=== PATIENT | male | born 1990 | race Caucasian/White ===

== ENCOUNTER 2016-05-10 09:25 | Inpatient (IN) | payer MEDICAID ==
[~2016-05-10] VITALS: Ht 177.8 cm; Wt 74.8 kg
[2016-05-10 09:25] VITALS: BP 145/72; PULSE 108; RESP 19; TEMP 99.1; O2SAT 98
--- NOTE | 2016-05-10 09:30 | NUR ---
Patient to ER bed 5 to gown for evaluation. Side railUP. ASSUMED CARE.
--- NOTE | 2016-05-10 09:35 | NUR ---
ER at bedside examining patient.
--- NOTE | 2016-05-10 09:36 | NUR ---
PT PRESENTS TO ED C/O LOWER ABD PAIN SINCE APPROX 0200 YESTERDAY. PT DENIES PREV MED HX. TENDERNESS NOTED IN LOWER ABD.
--- NOTE | 2016-05-10 09:40 | NUR ---
Pt offered medication by and myself. Pt refused. Pt educated on pain management.Pt verbalized understanding and advised to inform ed staff if pain medication required.
[2016-05-10 09:51] LABS: HEMATOCRIT 46.9 % (36-54); HEMOGLOBIN 15.7 g/dL (14.0-18.0); MEAN CORPUSCULAR HEMOGLOBIN 30 pg (27-31); MEAN CORPUSCULAR HGB CONC 34 % (32-36); MEAN CORPUSCULAR VOLUME 88 fL (79.0-98.0); PLATELET COUNT (AUTO) 193 K/uL (130-430); RED BLOOD CELL COUNT(AUTO) 5.32 MIL/uL (4.2-6.2); RED CELL DISTRIBUTION WIDTH 12.3 % (9.0-15.0)
[2016-05-10 09:53] LABS: WHITE BLOOD COUNT (AUTO) 23.4 K/uL (4.8-10.8)
[2016-05-10 09:59] LABS: CALCIUM 9.6 mg/dL (8.4-11.0); CREATININE 1.41 mg/dL (0.55-1.30); POTASSIUM 4.4 mmol/L (3.5-5.1)
[2016-05-10 10:03] LABS: INR 1.1 (0.80-1.20); PROTHROMBIN TIME 11.9 SECS (9.5-12.5)
[2016-05-10 10:05] LABS: ALBUMIN 4.4 g/dL (3.4-4.8); TOTAL BILIRUBIN 2.1 mg/dL (0.0-1.0); TOTAL PROTEIN, SERUM 8.2 g/dL (6.4-8.3)
--- NOTE | 2016-05-10 10:07 | NUR ---
Patient transported to radiology via WHEELCHAIR, accompanied by RAD STAFF.
[2016-05-10 10:14] LABS: ATYPICAL LYMPHOCYTES % 0 % (0-0); BAND % (MANUAL) 20 % (0-6); BASOPHILS % (MANUAL) 0 % (0-2); EOSINOPHILS % (MANUAL) 0 % (0-7); LYMPHOCYTES % (MANUAL) 4 % (20-46); MONOCYTES % (MANUAL) 3 % (0-11)
--- NOTE | 2016-05-10 10:22 | NUR ---
Urine sample to lab
--- NOTE | 2016-05-10 10:30 | NUR ---
Pt continues to decline offer for pain medication.
[2016-05-10 10:35] LABS: BILIRUBIN,URINE 1+ (NEGATIVE); CLARITY/URINE SL HAZY (CLEAR); COLOR,URINE ORANGE (YELLOW); GLUCOSE,URINE NEGATIVE (NEGATIVE); KETONES,URINE NEGATIVE (NEGATIVE); LEUKOCYTE ESTERASE ,URINE NEGATIVE (NEGATIVE); NITRITE, URINE NEGATIVE (NEGATIVE); PROTEIN URINE 1+ (NEGATIVE)
[2016-05-10 10:40] LABS: BLOOD, URINE TRACE (NEGATIVE)
[2016-05-10 10:45] LABS: BACTERIA,URINE RARE /HPF (None Seen); MUCUS,URINE 3+ /LPF (None Seen); RBC,URINE 0-3 /HPF (0-3); WBC,URINE 0-3 /HPF (0-3)
[2016-05-10] MEDS ORDERED: PIPERACILLIN/TAZO 3.375 GM in NS 50 ML IV ONE (11:30)
[2016-05-10] MEDS ORDERED: NACL 0.9% 1,000 ML IV ONE (11:30)
[2016-05-10] MEDS ORDERED: metroNIDAZOLE 500 mg/NS 100 ML IV ONE (11:30)
--- NOTE | 2016-05-10 11:30 | NUR ---
Pt tolerating medication.
[2016-05-10] MEDS ORDERED: PIPERACILLIN/TAZOBACTAM 3.375 GM/VIAL (ZOSYN) IV ONE (11:57)
[2016-05-10] MEDS ORDERED: KCL 20 mEq in D5/0.45NS 1000mL 1,000 ML IV SCH (12:15)
--- NOTE | 2016-05-10 12:15 | NUR ---
at bedside for explanation of anesthesia. pt verbalized understanding.
--- NOTE | 2016-05-10 12:15 | NUR ---
* ENTRY ERROR,PT SEEN BY
--- NOTE | 2016-05-10 13:00 | NUR ---
AT BEDSIDE FOR SURGERY CONSENT.
--- NOTE | 2016-05-10 13:15 | NUR ---
Patient will be admitted to care of . Admitted to MED/SURG unit. Will go to room AFTER SURGERY. Summary report printed. Report given to SURGERY STAFF.
[2016-05-10] MEDS: D5LR 1,000 ML IV SCH (13:35)
[2016-05-10] MEDS ORDERED: ACETAMINOPHEN/CODEINE 300 MG-30 MG TABLET PO PRN (13:45)
[2016-05-10] MEDS ORDERED: LR 1,000 ML IV SCH (13:54)
[2016-05-10] MEDS ORDERED: PROPOFOL 200MG/ 20ML VIAL (DIPRIVAN) IV ONE (14:00)
[2016-05-10] MEDS ORDERED: HYDROmorphone 1 MG INJ. 1 MG/ML AMPUL IVP PRN (14:00)
[2016-05-10] MEDS ORDERED: MEPERIDINE HCL/PF 25 MG/ML DISP.SYRIN IVP PRN ×2 (14:00)
[2016-05-10] MEDS ORDERED: KETOROLAC TROMETHAMINE 30 MG VIAL ONE (14:00)
[2016-05-10] MEDS ORDERED: fentaNYL CITRATE/PF 100 MCG/2 ML AMP ONE (14:00)
[2016-05-10] MEDS ORDERED: LR 1,000 ML IV.SOLN IV ONE (14:00)
[2016-05-10] MEDS ORDERED: KETOROLAC TROMETHAMINE 30 MG VIAL IVP PRN (14:00)
[2016-05-10] MEDS ORDERED: SEVOFLURANE 15 MIN GAS INH ONE (14:00)
[2016-05-10] MEDS ORDERED: BUPIVACAINE /EPINEPHRINE/PF 0.25% 30 ML VIAL INJ ONE (14:00)
[2016-05-10] MEDS ORDERED: HYDROmorphone 2 MG/ML VIAL IVP PRN ×2 (14:00)
[2016-05-10] MEDS ORDERED: ONDANSETRON HCL 4 MG/2 ML VIAL ONE (14:00)
[2016-05-10] MEDS ORDERED: ONDANSETRON HCL 4 MG/2 ML VIAL IVP PRN (14:00)
[2016-05-10] MEDS ORDERED: SUCCINYLCHOLINE CHLORIDE 20 MG/ML(QUELICIN) ONE (14:00)
[2016-05-10] MEDS ORDERED: MIDAZOLAM HCL 5 MG/5 ML VIAL ONE (14:00)
[2016-05-10] MEDS ORDERED: PIPERACILLIN/TAZO 3.375/DEX-IS 50 ML IV SCH (14:30)
[2016-05-10 15:30] VITALS: BP 124/72; PULSE 92; RESP 17; TEMP 98.9; O2SAT 94
--- NOTE | 2016-05-10 15:30 | NUR ---
Initial note Patient transferred from OR. A/O x 4, tired looking, no SOB, no chest pain, denied pain. Skin warm to touch, S/p ABD surgery, 3 dressing covered on ABD. Diminished lung sounds, and hypoactive bowel sounds all quadrants. +2 radial and pedal pulses, no edema noted. Call light within reach, educated patient to use call light for any concern or question, will continue monitor patient.
--- NOTE | 2016-05-10 15:30 | NUR ---
INCENTIVE SPIROMETER Educated pt on use of incentive spirometer, pt to use 10 times an hour while awake, pt verbalized understanding, pt at 1500ml.
--- NOTE | 2016-05-10 16:00 | NUR ---
Round A/O x 4, tired looking, no SOB, no chest pain, denied pain, denied N/V. Skin warm to touch, S/p ABD surgery, 3 dressing covered on ABD. Diminished lung sounds, and hypoactive bowel sounds all quadrants. +2 radial and pedal pulses, no edema noted. Call light within reach, educated provided, will continue monitor patient.
[2016-05-10] MEDS: MORPHINE 4 MG/ML INJ. SYRINGE IVP PRN (17:20)
[2016-05-10] MEDS: ONDANSETRON HCL 4 MG/2 ML VIAL IM PRN (17:25)
--- NOTE | 2016-05-10 18:30 | NUR ---
Closing note A/O x 4, tired looking, no SOB, no chest pain, was c/o pain 8/10 and N/V, Morphine IVP and Zofran IM given, pain decreased /10, denied N/V. Skin warm to touch, S/p ABD surgery, 3 dressing covered on ABD. Diminished lung sounds, and hypoactive bowel sounds all quadrants. +2 radial and pedal pulses, no edema noted. Call light within reach, educated provided, will continue monitor patient. Addendum: 05/10/16 at 1919 by Farhan Loya RN Ice packs applied to underarms to help lower the temp. Patient tolerated well.
--- NOTE | 2016-05-10 20:03 | NUR ---
Opening Note Report received from day shift RN. Patient is in stable condition. No signs of distress noted. IV is on the RAC running D5LR@100ml/hr. Call light is within reach. Instructed to use it whenever in need of assistance to avoid falls. Patient verbalized understanding.
[2016-05-10 20:07] VITALS: BP 119/71; PULSE 96; RESP 16; TEMP 98.4
[2016-05-10 20:14] VITALS: BP 119/71; PULSE 96; RESP 16; TEMP 98.4; O2SAT 94
[2016-05-10] MEDS: LACTOBACILLUS RHAMNOSUS GG 1 CAP CAPSULE PO SCH (21:32)
--- NOTE | 2016-05-10 22:05 | NUR ---
Rounds Patient is in stable condition. No complaints at the present moment. Call light is within reach.
[2016-05-11 00:22] VITALS: BP 112/59; PULSE 98; RESP 15; TEMP 98.1; O2SAT 97
--- NOTE | 2016-05-11 00:36 | NUR ---
Rounds Patient is resting in bed. No signs of distress noted. Call light is within reach.
--- NOTE | 2016-05-11 02:36 | NUR ---
Rounds Patient is resting in bed. No signs of distress noted. Call light is within reach.
[2016-05-11 04:24] VITALS: BP 95/53; PULSE 90; RESP 15; TEMP 98.3; O2SAT 100
--- NOTE | 2016-05-11 04:38 | NUR ---
Rounds Patient is resting in bed. Call light is within reach.
[2016-05-11] MEDS: D5LR 1,000 ML IV SCH ×2 (05:28→16:27)
[2016-05-11] MEDS: PIPERACILLIN/TAZO 3.375/DEX-IS 50 ML IV SCH ×5 (05:28→23:50)
--- NOTE | 2016-05-11 06:30 | NUR ---
Closing Note Patient is currently sleeping in bed. No complaints at the moment. IV is on the RAC running D5LR@100ml/hr. Call light is within reach. Will give report to the oncoming nurse.
[2016-05-11 06:38] LABS: CALCIUM 8.7 mg/dL (8.4-11.0); CREATININE 1.21 mg/dL (0.55-1.30); POTASSIUM 3.7 mmol/L (3.5-5.1)
[2016-05-11 06:50] LABS: HEMATOCRIT 36.6 % (36-54); HEMOGLOBIN 12.9 g/dL (14.0-18.0); MEAN CORPUSCULAR HEMOGLOBIN 32 pg (27-31); MEAN CORPUSCULAR HGB CONC 35 % (32-36); MEAN CORPUSCULAR VOLUME 90 fL (79.0-98.0); PLATELET COUNT (AUTO) 149 K/uL (130-430); RED BLOOD CELL COUNT(AUTO) 4.08 MIL/uL (4.2-6.2); RED CELL DISTRIBUTION WIDTH 12.2 % (9.0-15.0)
[2016-05-11 07:04] LABS: WHITE BLOOD COUNT (AUTO) 14.2 K/uL (4.8-10.8)
--- NOTE | 2016-05-11 07:20 | NUR ---
Initial notes: pt on be awake, alert and oriented. Stable. Denies pain. I.V. access patent. Discussed plan of care. Call light within reach. Report received at bedside.
[2016-05-11 08:07] VITALS: BP 110/68; PULSE 91; RESP 14; TEMP 98.6; O2SAT 100
[2016-05-11] MEDS: LACTOBACILLUS RHAMNOSUS GG 1 CAP CAPSULE PO SCH ×2 (08:07→20:45)
[2016-05-11 09:44] LABS: ATYPICAL LYMPHOCYTES % 0 % (0-0); BAND % (MANUAL) 27 % (0-6); BASOPHILS % (MANUAL) 0 % (0-2); EOSINOPHILS % (MANUAL) 0 % (0-7); LYMPHOCYTES % (MANUAL) 7 % (20-46); MONOCYTES % (MANUAL) 5 % (0-11)
[2016-05-11] MEDS: MORPHINE 4 MG/ML INJ. SYRINGE IVP PRN ×2 (09:47→16:31)
--- NOTE | 2016-05-11 10:00 | NUR ---
Liliam rounds: Seen by Dr. Pablo.
--- NOTE | 2016-05-11 12:00 | NUR ---
rounds: pt on bed. no distress noted.
--- NOTE | 2016-05-11 15:00 | NUR ---
rounds: pt sleeping. no distress noted.
--- NOTE | 2016-05-11 17:00 | NUR ---
rounds: pt feels Nauseated. Zofran given.
[2016-05-11] MEDS: ONDANSETRON HCL 4 MG/2 ML VIAL IM PRN (17:32)
--- NOTE | 2016-05-11 19:30 | NUR ---
closing notes: pt on bed resting. stable. needs attended. call light within reach. report given at bedside.
[2016-05-11 20:00] VITALS: BP 106/63; PULSE 64; RESP 20; TEMP 98.2; O2SAT 98
--- NOTE | 2016-05-11 20:00 | NUR ---
INITIAL NOTES; -Pt is a/ox4, resting in bed. Pt denies any pain,sob,or any acute distress. Vitals signs 98.2, 20, 64,106/63, y4vxl=88% r/a. IVF LR @ 100ml/hr. Iv site of RAC patent, no s/s any infiltration noted. 3 surgical puncture sites of abdominal area-drsg cdi with old blood stained. Pt refused to change new surgical abdominal drsg. Pt stated, " I am okay with it,no needs to change.'' Instructed pt if change mind and want to change new drsg-use call light to inform nurse, pt verbalized understanding. Keep HOB greater than 30 degree entire time. Lung sounds clear throughout all lobes. Abdomen soft & nondistended, bs present. Bill pedis pulses present, no edema noted. SCD in place osvaldo lower extremities. Encouraged pt to use incentive spirometry 10x/hr while awake, pt shows good teaching back and verbalized understanding. All safety measures in place. Call light w/in reach. Continue to monitor pt.
--- NOTE | 2016-05-11 20:45 | NUR ---
NOTES; -Pt is resting in bed. Pt denies any pain,sob,or any acute distress. Gave po medication, pt tolerated well. IVF LR @ 100ml/hr. Iv site of RAC patent, no s/s any infiltration noted. SCD in place osvaldo lower extremities. All safety measures in place. Call light w/in reach. Continue to monitor pt.
--- NOTE | 2016-05-11 22:17 | NUR ---
NOTES; -Pt is resting in bed. No s/s any pain,sob,or any acute distress noted. IVF LR @ 100ml/hr. Iv site of RAC patent, no s/s any infiltration noted. SCD in place osvaldo lower extremities. All safety measures in place. Call light w/in reach. Continue to monitor pt.
--- NOTE | 2016-05-11 23:50 | NUR ---
NOTES; -Pt is resting in bed. Pt denies any pain,sob,or any acute distress. IVF LR @ 100ml/hr. Iv site of RAC patent, no s/s any infiltration noted. All safety measures in place. Call light w/in reach. Continue to monitor pt.
[2016-05-12] VITALS (8 sets, daily range): BP systolic 114–135; BP diastolic 6–78; PULSE 71–87; RESP 16–21; TEMP 96.5–99.2; O2SAT 97–99
--- NOTE | 2016-05-12 01:58 | NUR ---
NOTES; -Pt is resting in bed. No s/s any pain,sob,or any acute distress noted. IVF LR @ 100ml/hr. Iv site of RAC patent, no s/s any infiltration noted. All safety measures in place. Call light w/in reach. Continue to monitor pt.
[2016-05-12] MEDS: PIPERACILLIN/TAZO 3.375/DEX-IS 50 ML IV SCH (05:35)
[2016-05-12] MEDS: D5LR 1,000 ML IV SCH ×2 (05:35→17:53)
--- NOTE | 2016-05-12 06:54 | NUR ---
CLOSING NOTES; -Pt is resting in bed. No s/s any pain,sob,or any acute distress noted. IVF LR @ 100ml/hr. Iv site of RAC patent, no s/s any infiltration noted. SCD in place osvaldo lower extremities. All safety measures in place. Call light w/in reach. Will endorse to oncoming nurse to continue care.
--- NOTE | 2016-05-12 07:20 | NUR ---
Initial notes: pt on bed awake, alert and oriented. stable. i.v. access patent. Discussed plan of care. call light within reach. report received at bedside.
[2016-05-12 07:55] LABS: BASOPHILS % (AUTO) 0.1 % (0.0-2.0); EOSINOPHILS % (AUTO) 0.1 % (0.0-4.0); HEMATOCRIT 42.5 % (36-54); HEMOGLOBIN 14.1 g/dL (14.0-18.0); LYMPHOCYTES # (AUTO) 1.3 K/uL (1.0-5.5); LYMPHOCYTES % (AUTO) 8.9 % (20.5-51.5); MEAN CORPUSCULAR HEMOGLOBIN 30 pg (27-31); MEAN CORPUSCULAR HGB CONC 33 % (32-36); MEAN CORPUSCULAR VOLUME 91 fL (79.0-98.0); MONOCYTES # (AUTO) 0.7 K/uL (0.0-1.0); NEUTROPHILS # (AUTO) 12.3 K/uL (1.8-7.7); NEUTROPHILS % (AUTO) 85.9 % (40.0-70.0); PLATELET COUNT (AUTO) 205 K/uL (130-430); RED BLOOD CELL COUNT(AUTO) 4.68 MIL/uL (4.2-6.2); RED CELL DISTRIBUTION WIDTH 12.4 % (9.0-15.0); WHITE BLOOD COUNT (AUTO) 14.3 K/uL (4.8-10.8)
--- NOTE | 2016-05-12 08:14 | NUR ---
rounds: pt ambulatory with steady gait. able to go to the toilet.
[2016-05-12 08:22] LABS: CALCIUM 9.2 mg/dL (8.4-11.0); CREATININE 1.21 mg/dL (0.55-1.30); POTASSIUM 3.7 mmol/L (3.5-5.1)
[2016-05-12] MEDS: LACTOBACILLUS RHAMNOSUS GG 1 CAP CAPSULE PO SCH ×2 (08:45→22:06)
--- NOTE | 2016-05-12 09:30 | NUR ---
Liliam rounds: seen by Dr. Yang with a discharge order.
[2016-05-12] MEDS ORDERED: HYDR-1189 PO (11:02)
--- NOTE | 2016-05-12 11:50 | NUR ---
critical lab: lab called for + ESBL/MDRO. paged Dr. Romero and called back to hold discharge. Consult for Dr. Champagne.
--- NOTE | 2016-05-12 13:34 | NUR ---
CONSULT ID ESBL/MDRO DR COATS [id number] S/W NATALIE EXCHANGE @ [id number]
--- NOTE | 2016-05-12 14:00 | NUR ---
rounds: pt waiting for M.D.
--- NOTE | 2016-05-12 16:54 | NUR ---
Liliam rounds: seen by Dr. Champagne. with new orders.
[2016-05-12] MEDS: ERTAPENEM SODIUM 1 GM in NS 50 ML IV SCH (17:53)
[2016-05-12] MEDS: ONDANSETRON HCL 4 MG/2 ML VIAL IM PRN ×2 (19:11→23:42)
[2016-05-12] MEDS: MORPHINE 4 MG/ML INJ. SYRINGE IVP PRN ×2 (19:12→23:38)
--- NOTE | 2016-05-12 19:15 | NUR ---
change of shift.pt.is placed in isolation:contact:esbl,mdro,e.coli:abdomen;wound;incision;surgery.lap appendectomy. pt.apprised of the isolation order:pt.was 2 have been d/c home:05/12/16.d/c held 2/t microbiology results:rised. pt.is independent.ambulatory.iv fluids infusing.diet:full liquids.room air.aaa/q x4.
--- NOTE | 2016-05-12 19:30 | NUR ---
closing notes: pt on bed resting. stable. needs attended. call light within reach. report given at bedside.
--- NOTE | 2016-05-12 21:00 | NUR ---
2100p medication administered:culturelle.no pain,nausea,slight bloating.diet:full liquids.pt.tolerating feeding. call light w/in pt's reach.
--- NOTE | 2016-05-12 23:15 | NUR ---
pt.requested medication:re:pain,anusea.i have administered morphine;2mg ivp,zofran:4mg ivp nausea. no other request.call light w/in pt's reach.
[2016-05-13 00:33] VITALS: BP 115/70; PULSE 68; RESP 18; TEMP 97.7; O2SAT 96
[2016-05-13] MEDS: D5LR 1,000 ML IV SCH ×4 (01:45→20:57)
--- NOTE | 2016-05-13 05:00 | NUR ---
pt.assessed,iv fluids bag changed.2 f/u with :bloating 2/t diet.pt.may require simethicone.no c/o pain,nausea @this hour.pt.states he is comfortable.
[2016-05-13 06:00] VITALS: BP 125/77; PULSE 69; RESP 17; TEMP 97.6; O2SAT 98
[2016-05-13 08:00] VITALS: BP 116/63; PULSE 85; RESP 18; TEMP 98.2; O2SAT 97
--- NOTE | 2016-05-13 08:00 | NUR ---
NOTE PT SITTING UP IN BED WITH GAS PAIN. MAKING AN ATTEMPT TO EAT SOME OF HIS FULL LIQUIDS BREAKFAST TRAY. PT ENCOURAGED TO AMBULATE IN ROOM AND HALLWAY TO HELP MOVE GAS. PT VERBALIZED UNDERSTANDING. NO SOB/RESP DISTRESS NOTED AT THIS TIME. NO NEEDS NOTED. IV IN LEFT AC INTACT AND PATENT AT THIS TIME. CALL LIGHT WITHIN REACH.
[2016-05-13] MEDS: LACTOBACILLUS RHAMNOSUS GG 1 CAP CAPSULE PO SCH ×2 (08:56→20:57)
--- NOTE | 2016-05-13 08:57 | NUR ---
PAGED ATTENDING MD DR LAZARO, RE: MEDS TO UNLOAD THE GAS.
--- NOTE | 2016-05-13 09:00 | NUR ---
NOTE DR LAZARO CALLED BACK AND STATED HE WOULD PUT IN MEDICATION SIMETHICONE PO FOR PT'S GAS PAIN.
--- NOTE | 2016-05-13 09:01 | NUR ---
Nutrition Update Marvin Scale 18 noted. Pt admitted for acute appendicitis. Diet: full liquid BMI: 23.7 kg/m2 RD to follow per nutrition care standards.
[2016-05-13] MEDS: MORPHINE 4 MG/ML INJ. SYRINGE IVP PRN (10:25)
--- NOTE | 2016-05-13 11:00 | NUR ---
NOTE PT AMBULATING IN ROOM AND ABLE TO PASS SOME GAS AND BURP. PT STATES HE FEELS A LITTLE BETTER. REQUESTED PAIN IVP MEDICATION. WILL BE GIVEN SHORTLY. PT DENIES ANY NEEDS. 3 LAP SITES ON ABDOMEN DRESSING CDI AT THIS TIME. CALL LIGHT WITHIN REACH.
--- NOTE | 2016-05-13 13:25 | NUR ---
NOTE PT STILL SLEEPY AND DROWSY. WILL WORK ON HIS LUNCH TRAY SLOWLY, PT STILL FEELS BLOATED AND FILLED WITH GAS. PT'S MOTHER CAME TO VISIT AN HOUR AGO, BUT PT WAS DEEPLY ASLEEP AND MOTHER DID NOT WANT TO WAKE PT UP AT THIS TIME. CALL LIGHT WITHIN REACH.
[2016-05-13 16:00] VITALS: BP 111/75; PULSE 78; RESP 18; TEMP 98; O2SAT 98
[2016-05-13] MEDS: ERTAPENEM SODIUM 1 GM in NS 50 ML IV SCH (16:05)
[2016-05-13] MEDS: ONDANSETRON HCL 4 MG/2 ML VIAL IM PRN (16:49)
--- NOTE | 2016-05-13 17:30 | NUR ---
NOTE PT HAS BEEN AMBULATING IN HIS ROOM WITH IV POLE. PT STILL FEELS FULL OF GAS. PT WAS GIVEN ZOFRAN IVP FOR NAUSEA AND IS ABLE TO PASS FLATUS/BURP. PT HAD HIS IVPB ANTIBIOTIC AND NOW SITTING ON SIDE OF BED TO EAT HIS DINNER. PT'S GIRLFRIEND AT BEDSIDE AT THIS TIME. NO SOB/RESP DISTRESS OR ABDOMINAL PAIN NOTED. PT ENCOURAGED TO SIT UP IN CHAIR MORE OFTEN. NO NEEDS NOTED AT THIS TIME. PT WAS CHECKED ON Q1' AND PRN FOR NEEDS AT THIS TIME. CALL LIGHT WITHIN REACH.
--- NOTE | 2016-05-13 18:15 | NUR ---
NOTE PT SITTING UP IN BED WITH DINNER TRAY ON THE SIDE. PT'S GIRLFRIEND WILL ASSIST PT IN HIS HYGIENE CARE IN A LITTLE WHILE. PT STATES HE STILL FEELS BLOATED, THOUGH BETTER THAN THIS MORNING. NO NEEDS NOTED. IVF'S WERE SALINE LOCKED PER DR LAZARO'S VERBAL ORDER. IV ON LEFT UPPER ARM INTACT AND PATENT AT THIS TIME. CALL LIGHT WITHIN REACH.
--- NOTE | 2016-05-13 18:55 | NUR ---
NOTE PT IN THE HALLWAYS AMBULATING WITH GIRLFRIEND AND IV POLE. TOLERATING AMBULATION WELL.
[2016-05-13 20:00] VITALS: BP 131/74; PULSE 80; RESP 19; TEMP 98.3; O2SAT 99
--- NOTE | 2016-05-13 20:00 | NUR ---
PM Shift Assessment Received patient sitting up in bed, AAO x4, no acute distress noted, family members are at the bedside. Assessment complete, vital signs stable, patient states pain is tolerable at this time. Pain management education provided, patient verbalized understanding. Plan of care discussed with patient and family, they verbalized understanding. Patient is verbally able to make needs known and encouraged to do so. Call light is within reach, all fall and safety precautions in place, will continue to monitor for change in patient status. Addendum: 05/13/16 at 2151 by Janett Cherry RN No incentive spirometer noted at the bedside, per patient family took home when patient was to be discharged, education provided on the importance of use 10x/hour while awake, patient verbalized understanding and stated he will have family bring it back in the morning for use. Encouraged deep breathing, patient verbalized understanding.
--- NOTE | 2016-05-13 22:14 | NUR ---
RN Rounds Patient is sitting up in bed, no acute distress noted or complain of pain or nausea at this time. Scheduled medications were administered earlier per MD order. Reminded patient to call for assistance as needed, he verbalized understanding. Call light is within reach, all fall and safety precautions in place, will continue to monitor.
[2016-05-13 23:58] VITALS: BP 142/80; PULSE 70; RESP 18; TEMP 98.6; O2SAT 100
--- NOTE | 2016-05-14 00:15 | NUR ---
RN Rounds Patient is sleeping but easily arousable, no acute distress noted. IV fluids infusing well. Call light is within reach, all fall and safety precautions in place, will continue to monitor.
--- NOTE | 2016-05-14 02:28 | NUR ---
RN Rounds Patient is sleeping, respirations are even and unlabored, no acute distress noted. No [id number] signs of pain noted at this time. Call light is within reach, all fall and safety precautions in place, will continue to monitor.
[2016-05-14 04:09] VITALS: BP 120/72; PULSE 72; RESP 18; TEMP 97.7; O2SAT 96
--- NOTE | 2016-05-14 04:38 | NUR ---
RN Rounds Patient is sleeping but easily arousable, no acute distress noted or complain of pain at this time. Vital signs stable. Call light is within reach, all fall and safety precautions in place, will continue to monitor.
--- NOTE | 2016-05-14 07:26 | NUR ---
Closing Notes Patient noted up to restroom at this time. IV noted to be leaking earlier, new IV started to right forearm, 22 gauge, flushes well, IV fluids to be restarted. Patient is stable, all needs met throughout shift. SBAR report endorsed to AM nurse at bedside.
--- NOTE | 2016-05-14 07:55 | NUR ---
Initial Note Received pt in bed, no s/s of distress or sob noted, pt has no c/o pain at this time, pt in stable condition, pt aaox4, verbal. IV catheter patent, no signs of infection or infiltration noted. Per report pt took incentive spirometer home but was at 1500ml. Reminded pt to bring it in from home to help prevent pneumonia and help expand his lungs after surgery, pt verbalized understanding and stated he was. Pt encouraged to deep breath. Bed at lowest position, call light within reach, will continue to monitor pt for any changes.
[2016-05-14] MEDS: LACTOBACILLUS RHAMNOSUS GG 1 CAP CAPSULE PO SCH ×2 (08:30→21:03)
[2016-05-14] MEDS: D5LR 1,000 ML IV SCH ×2 (08:30→16:19)
[2016-05-14 08:33] VITALS: BP 125/80; PULSE 80; RESP 17; TEMP 98.1; O2SAT 99
--- NOTE | 2016-05-14 10:10 | NUR ---
Rounds Pt sitting up in chair, no s/s of distress or sob noted, pt has no c/o pain at this time, pt in stable condition, pt resting comfortably, will continue to monitor pt for any changes.
[2016-05-14 11:44] VITALS: BP 119/76; PULSE 80; RESP 16; TEMP 97.6; O2SAT 97
[2016-05-14 14:25] VITALS: Ht 177.8 cm; Wt 74.8 kg
--- NOTE | 2016-05-14 14:25 | NUR ---
Rounds Pt sitting up in chair talking to visitor, no s/s of distress or sob noted, pt has no c/o pain at this time, pt in stable condition, pt resting comfortably, will continue to monitor pt for any changes.
[2016-05-14] MEDS: ERTAPENEM SODIUM 1 GM in NS 50 ML IV SCH (16:17)
[2016-05-14] MEDS: ONDANSETRON HCL 4 MG/2 ML VIAL IVP PRN (16:17)
[2016-05-14 16:27] VITALS: BP 120/77; PULSE 76; RESP 16; TEMP 97.6; O2SAT 100
--- NOTE | 2016-05-14 18:23 | NUR ---
Closing Note Pt in bed, no s/s of distress or sob noted, pt has no c/o pain at this time, pt in stable condition, pt aaox4, verbal. IV catheter patent, no signs of infection or infiltration noted. Bed at lowest position, call light within reach, will endorse care of pt to incoming nurse. Needs met throughout shift.
[2016-05-14 19:35] VITALS: BP 118/85; PULSE 77; RESP 16; TEMP 98.6; O2SAT 97
--- NOTE | 2016-05-14 19:35 | NUR ---
Initial Note pt. received aaox4, no s/s of distress or sob noted, VSS. pt has no c/o pain at this time, pt in stable condition. IV catheter patent, no redness or swelling at the site. IV fluids infusing well as ordered. Per report pt took incentive spirometer home but was at 1500ml. Reminded pt to bring it in from home to help prevent pneumonia and help expand his lungs after surgery, pt verbalized understanding and stated he was. Pt encouraged to deep breathe. Bed at lowest position, call light within reach, will continue to monitor pt for any changes.
--- NOTE | 2016-05-14 22:01 | NUR ---
Rounds Pt sitting up in bed talking on the phone, no s/s of distress or sob noted, pt has no c/o pain at this time, pt in stable condition, pt resting comfortably, will continue to monitor pt for any changes. call light in reach.
[2016-05-15] VITALS (7 sets, daily range): BP systolic 119–146; BP diastolic 63–80; PULSE 64–87; RESP 16–18; TEMP 97.4–98.7; O2SAT 94–99
--- NOTE | 2016-05-15 00:03 | NUR ---
rounds pt. resting in bed with eyes closed. chest rise and fall noted. no s/s of sob or distress noted. no facial grimacing indicating any pain. IV fluids infusing well. safety, fall and contact precautions in place. call light in reach, bed in lowest position.
[2016-05-15] MEDS: D5LR 1,000 ML IV SCH (04:02)
--- NOTE | 2016-05-15 04:14 | NUR ---
ROUNDS PT. RESTING IN BED, NO S/S OF ACUTE DISTRESS NOTED. PT. DENIES PAIN. IV FLUIDS INFUSING WELL ORDERED. WILL CONTINUE TO MONITOR. SAFETY, FALL AND ISOLATION PRECAUTIONS IN PLACE. CALL LIGHT IN REACH.
--- NOTE | 2016-05-15 06:49 | NUR ---
CLOSING NOTE PT. RESTING IN BED. NO SIGNS OF ACUTE DISTRESS. PT. DENIES ANY PAIN. IV FLUIDS INFUSING WELL. ALL NECESSARY NEEDS WERE MET. SAFETY, FALL, AND CONTACT PRECAUTIONS MAINTAINED. WILL ENDORSE CARE TO AM NURSE. CALL LIGHT IN REACH, BED IN LOWEST POSITION.
--- NOTE | 2016-05-15 07:30 | NUR ---
rn notes: patient is aaox 4 afebrile. vss stable. lungs bilaterally clear. abdomen soft and non distended. still s/p appendectomy dressing x 3 sites dry/intact. no bleeding noted. has iv access on the right forearm #22. with iv fluids of D5LR 100cc/hr infusing on well. call lights within reach. safety measures maintained. bed in low position. informed patient to call for assistance.
[2016-05-15] MEDS: LACTOBACILLUS RHAMNOSUS GG 1 CAP CAPSULE PO SCH (09:50)
--- NOTE | 2016-05-15 09:53 | NUR ---
zahraa benjamin. made comfortable.
--- NOTE | 2016-05-15 10:00 | NUR ---
went to the bathroom stable. no pain nor distress noted.
--- NOTE | 2016-05-15 12:00 | NUR ---
eating lunch stable. watching tv. no distress noted.
--- NOTE | 2016-05-15 14:00 | NUR ---
watching tv. stable. no pain nor distress noted at this time.
--- NOTE | 2016-05-15 16:00 | NUR ---
walking in the hallway. no distress nor pain noted.
--- NOTE | 2016-05-15 16:15 | NUR ---
zofran 4 mg iv given by Jacinto COLEMAN and followed by Esme iv antibiotic.
[2016-05-15] MEDS: ONDANSETRON HCL 4 MG/2 ML VIAL IVP PRN (16:42)
[2016-05-15] MEDS: ERTAPENEM SODIUM 1 GM in NS 50 ML IV SCH (16:43)
--- NOTE | 2016-05-15 18:00 | NUR ---
patient is walking the hallway many times with the mom.
--- NOTE | 2016-05-15 18:30 | NUR ---
Dr Romero and evaluate the patient.
--- NOTE | 2016-05-15 19:38 | NUR ---
jessicaar endorsed to incoming nurse Nora COLEMAN
--- NOTE | 2016-05-15 19:45 | NUR ---
initial note pt. received aaox4, no s/s of sob. vss, denies pain. iv fluids infusing well. pt. states he wants to go home and was told he could do so once he finished day 4 of antibiotics, which he has. will page dr. vela for orders. safety, fall, and isolation precautions in place. call light in reach.
== END 2016-05-15 22:20 | disposition home or self-care (01) | DRG 710 ==
LOC: SED 09:25 → SMU 12:11
PROVIDERS: ADMIT Family Medicine; ATTEND Family Medicine
PROC: 0DTJ4ZZ Resection of Appendix, Percutaneous Endoscopic Approach (ICD-10-PCS; principal; 2016-05-10 12:30)
DX: A41.9 Sepsis, unspecified organism (principal); K35.3 Acute appendicitis with localized peritonitis; B96.20 Unspecified Escherichia coli [E. coli] as the cause of diseases classified elsewhere
CPT/HCPCS: 36415; 80048; 80053; 81000-TC; 82150-TC; 83690-TC; 85007; 85025; 85027; 85610-TC; 85730-TC; 87070; 87070-TC; 87075-TC; 87081; 87186-TC; 88304; 96361; 96365; 96368; 99285; C1727; J0330; J1335; J1885; J2250; J2270; J2405; J2543; J2704; J3010; J3490; J7030; J7120

== ENCOUNTER 2018-06-20 13:07 | Emergency (ER) | payer MEDICAID ==
[~2018-06-20] VITALS: Ht 177.8 cm; Wt 73.5 kg
[~2018-06-20 13:07] MED LIST: HYDR-1189 PO
[2018-06-20 13:13] VITALS: BP_SYST 144
[2018-06-20 14:32] VITALS: BP_SYST 139
== END 2018-06-20 14:32 | disposition home or self-care (01) ==
LOC: SED 13:07
DX: L25.9 Unspecified contact dermatitis, unspecified cause (principal); R03.0 Elevated blood-pressure reading, without diagnosis of hypertension
CPT/HCPCS: 99283